=== PATIENT | female | born 1985 | race Caucasian/White ===

== ENCOUNTER 2016-10-08 16:05 | Emergency (ER) | payer BC ==
[2016-10-08 16:35] VITALS: BP 118/71
--- NOTE | 2016-10-08 17:00 | UC ---
Throat Pain/Nasal Efra HPI - HPI Summary HPI Summary: SORE THROAT X 2 DAYS , + NASAL CONGESTION , COUGH, NO FEVER, NO CHILLS DAUGHTER + FOR STREP - History of Current Complaint Chief Complaint: UCGeneralIllness Stated Complaint: SORE THROAT,SINUS Time Seen by Provider: 10/08/16 16:40 Hx Obtained From: Patient Hx Last Menstrual Period: 09/06/16 Onset/Duration: Gradual Onset, Lasting Days - 2, Still Present Severity: Moderate Cough: Nonproductive Associated Signs & Symptoms: Positive: Sinus Discomfort, Nasal Discharge. Negative: Drooling, Hoarseness, Fever - Allergies/Home Medications Allergies/Adverse Reactions: Allergies Allergy/AdvReac Type Severity Reaction Status Date / Time Loratadine [From Claritin] AdvReac Insomnia Verified 10/08/16 16:35 Home Medications: Home Medications Control Pill 1 tab DAILY 10/08/16 [History Confirmed 10/08/16] Cetirizine* [ZyrTEC*] 10 mg PO DAILY 10/08/16 [History Confirmed 10/08/16] Fluticasone NASAL SPRAY 50MCG* [Flonase NASAL SPRAY 50MCG*] 2 spray BOTH NARES DAILY PRN 10/08/16 [History Confirmed 10/08/16] metFORMIN* [Glucophage*] 500 mg PO BID 10/08/16 [History Confirmed 10/08/16] PMH/Surg Hx/FS Hx/Imm Hx Previously Healthy: Yes - Surgical History Surgical History: None - Family History Known Family History: Negative: Diabetes - Social History Alcohol Use: Rare Substance Use Type: None Smoking Status (MU): Never Smoked Tobacco - Immunization History Most Recent Influenza Vaccination: none Review of Systems Constitutional: Negative Skin: Negative Eyes: Negative ENT: Sore Throat, Nasal Discharge Respiratory: Cough Cardiovascular: Negative Gastrointestinal: Negative Genitourinary: Negative All Other Systems Reviewed And Are Negative: Yes Physical Exam Triage Information Reviewed: Yes Appearance: Well-Appearing, No Pain Distress, Well-Nourished Vital Signs: Initial Vital Signs Temp 97.7 F 10/08/16 16:28 Pulse 89 10/08/16 16:28 Resp 16 10/08/16 16:28 BP 118/71 10/08/16 16:28 Pulse Ox 100 10/08/16 16:28 Vital Signs Reviewed: Yes Eyes: Positive: Conjunctiva Clear ENT: Positive: Normal ENT inspection, Hearing grossly normal, Pharyngeal erythema, Nasal congestion, Nasal drainage, TMs normal Neck: Positive: Supple, Nontender, No Lymphadenopathy Respiratory: Positive: Chest non-tender, Lungs clear, Normal breath sounds Cardiovascular: Positive: RRR, No Murmur, Pulses Normal Throat Pain/Nasal Course/Dx - Differential Dx/Diagnosis Provider Diagnoses: VIRAL PHARYNGITIS Discharge - Discharge Plan Condition: Stable Disposition: HOME Patient Education Materials: Pharyngitis (ED) Referrals: Tali Grey [Primary Care Provider] - If Needed Additional Instructions: VIRAL PHARYNGITIS NEGATIVE RAPID STREP TEST
== END 2016-10-08 17:23 | disposition home or self-care (01) ==
LOC: UCCORT 16:05
DX: J02.9 Acute pharyngitis, unspecified (principal); Z88.8 Allergy status to other drugs, medicaments and biological substances
CPT/HCPCS: 87651; 99201; G0463